=== PATIENT | female | born 1975 | race Asian ===

== ENCOUNTER 2017-03-26 20:06 | Emergency (ER) | payer OTHER, SELFPAY ==
--- NOTE | ~2017-03-26 | ER ---
PATIENT'S NAME: KAITLIN VILLAR [facility] AGE: 41 Y [address] ROOM: [place] [address] LOCATION: [facility] ADMIT DATE: 03/26/2017 ER/Outpatient Report DISCHARGE DATE: FAMILY PHYSICIAN: PHYSICIAN, NO ATTENDING PHYSICIAN: Beka Askew Time of Arrival: Admission date and time documented on the medical record. Time of Evaluation: I saw the patient at 2025 hours. CHIEF COMPLAINT: Lightheadedness, dizziness, and heart racing. HISTORY OF PRESENT ILLNESS: This patient is a 41-year-old female, who was sitting at home when she had onset of her heart racing, got a little lightheaded and dizzy. Had no syncope or near syncope. No fall or trauma. No recent colds, coughs, flus, fever, chills, or sweats. Does have a left-sided headache and a headache at the top of her head. No eyes, ears, nose, throat, neck, or spine pain. A little bit of chest tightness, but no chest pain. Some shortness of breath. The patient was mildly tachypneic at a respiratory rate of 20 and O2 saturations were 97% on room air. She was afebrile. Her heart rate was in the 90s, regular. This started about 3 hours prior to admission in the emergency room. No abdominal pain, nausea, vomiting, or diarrhea. No urinary frequency, urgency, or dysuria. No joint or muscle swelling, redness, or pain. No skin eruptions or rash. No history of neuro changes, psych issues, or endocrine problems. HOME MEDICATIONS: None. ALLERGIES: NONE. SOCIAL HISTORY: Nonsmoker. Nondrinker. SIGNIFICANT PAST MEDICAL HISTORY: Negative. OPERATIONS: delivery. REVIEW OF SYSTEMS: All systems reviewed by me are negative with the exception of those discussed in the history of present illness. PATIENT'S NAME: KAITLIN VILLAR [facility] AGE: 41 Y [address] ROOM: [place] [address] LOCATION: [facility] ADMIT DATE: 03/26/2017 ER/Outpatient Report DISCHARGE DATE: FAMILY PHYSICIAN: PHYSICIAN, NO ATTENDING PHYSICIAN: Beka Askew PHYSICAL EXAMINATION: VITAL SIGNS: Temperature 97.9, tympanic; pulse 90, regular; respirations 20; blood pressure 129/74; and O2 saturation on room air is 97%. HEAD: Normocephalic. No abrasion, contusion, laceration, or swelling of the scalp or face. EYES: Extraocular muscles intact. PERRL. EARS: Clear TMs bilaterally. NOSE: Clear. THROAT: Clear. Mucous membranes moist. Teeth, jaw intact. NECK: No nuchal rigidity. No thyromegaly or cervical adenopathy. No carotid bruits. SPINE: Negative. LUNGS: Clear. Good air flow. No rales, rhonchi, or wheezes. HEART: Regular. Pulses palpable. ABDOMEN: Soft, nondistended, nontender. Good bowel tones. No organomegaly or abnormal mass palpable. PELVIS: Stable. EXTREMITIES: No peripheral edema, cyanosis, or deformity. NEUROVASCULAR: Intact. SKIN: Clear. No skin eruptions or rash. LABORATORY DATA AND X-RAYS: CMS was normal except for a slightly low potassium of 3.5, slightly elevated glucose 110, magnesium was 2.0, CPK was 96, [id number] cardiac enzymes were normal. White count was 7000, 53 segs, 39 lymphs, 6 monos, 1 eo; hemoglobin was 11.8 with hematocrit 37.3; platelet count was 335,000. PTT was 27, pro- time was 9.9 with an INR of 0.94. EKG showed sinus rhythm. No acute ST elevation, ischemic change, or arrhythmia. Chest x-ray showed no acute infiltrate or changes. We will review x-ray with the radiologist. IMPRESSION: Racing heart with chest tightness and lightheadedness, dizziness, etiology uncertain. PLAN: The patient was discharged home. Observation. Activity as tolerated. Good fluid intake. Balanced diet. Valium 2 mg 3 times a day, #15. Medrol Dosepak, take as directed. Follow up with personal physician in 5 to 6 days or sooner if needed. BEKA ASKEW MD PATIENT'S NAME: KAITLIN VILLAR [facility] AGE: 41 Y [address] ROOM: [place] [address] LOCATION: [facility] ADMIT DATE: 03/26/2017 ER/Outpatient Report DISCHARGE DATE: FAMILY PHYSICIAN: DUYEN MOTTA ATTENDING PHYSICIAN: Beka Askew/bushral /[id number] d: 03/27/17 0135 t: 03/27/17 1813, OUTPATIENT REPORT
[2017-03-26 20:52] LABS: BASOPHIL % 0.3 %; EOSINOPHIL # 0.1 K/uL (0.0-0.5); EOSINOPHIL % 1.1 %; HEMATOCRIT 37.3 % (33.0-46.0); HEMOGLOBIN 11.8 g/dL (10.0-15.0); IMMATURE GRANULOCYTE % 0.3 %; LYMPHOCYTE # 2.7 K/uL (0.8-4.0); LYMPHOCYTE % 38.8 %; MCH 23.2 pg (27.0-34.0); MCHC 31.6 gm/dL (32.0-36.5); MCV 73.3 fl (83.0-98.0); MONOCYTE # 0.5 K/uL (0.0-1.0); MONOCYTE % 6.4 %; NEUTROPHIL # (ANC) 3.7 K/uL (1.8-7.8); NEUTROPHIL % 53.1 %; NRBC % 0 /100WBC (0-0.00); PLATELET COUNT 335 K/uL (150-450)
[2017-03-26 20:55] LABS: RBC 5.09 M/uL (3.50-5.50)
[2017-03-26 21:01] LABS: INR - (THERAPEUTIC) 0.94 (0.92-1.07); PROTIME 9.9 SECONDS (9.8-11.4); PTT 27 SECONDS (25-32)
[2017-03-26 21:11] LABS: ALBUMIN 3.6 gm/dL (3.5-5.0); ALK PHOS 55 IU/L (33-138); ALT 18 IU/L (12-78); ANION GAP 13.5 (10.0-19.0); AST 12 IU/L (10-40); BLOOD UREA NITROGEN 12 mg/dL (6-24); CALCIUM 8.5 mg/dL (8.5-10.5); CHLORIDE 104 mMol/L (96-110); CO2 26 mMol/L (22-32); CPK 96 IU/L (21-215); CREATININE 0.6 mg/dL (0.5-1.1); ESTIMATED GFR (MDRD EQUATION) > 60; POTASSIUM 3.5 mMol/L (3.7-5.1); SODIUM 140 mMol/L (135-145); TOTAL BILIRUBIN 0.2 mg/dL (0.0-1.5); TOTAL PROTEIN 7.7 g/dL (6.0-8.4)
== END 2017-03-26 21:37 | disposition disaster alternative care site (69) ==
LOC: GMED 20:06
PROVIDERS: Emergency Medicine
DX: R07.89 Other chest pain (principal); R42 Dizziness and giddiness; R00.2 Palpitations; Z98.890 Other specified postprocedural states